=== PATIENT | female | born 1990 | race Caucasian/White ===

== ENCOUNTER 2017-11-13 08:46 | Emergency (ER) | payer SELFPAY ==
--- NOTE | 2017-11-13 10:44 | UC ---
Respiratory Complaint HPI - HPI Summary HPI Summary: works has a [employer] at [employer] sent home yesterday with cough and fever-lungs are burning when she coughs-overall feels bad - History of Current Complaint Chief Complaint: UCRespiratory Stated Complaint: RESP ISSUE Time Seen by Provider: 11/13/17 10:35 Hx Obtained From: Patient Hx Last Menstrual Period: iud ?: No Onset/Duration: Sudden Onset - 2, Lasting Days - 2, Still Present Timing: Constant Severity Initially: Moderate Severity Currently: Moderate Pain Intensity: 4 Character: Cough: Productive Aggravating Factors: Nothing Alleviating Factors: Nothing Associated Signs And Symptoms: Positive: Fever, Chills, Pleuritic Chest Pain, Wheezing, URI, Nasal Congestion - Allergies/Home Medications Allergies/Adverse Reactions: Allergies Allergy/AdvReac Type Severity Reaction Status Date / Time No Known Allergies Allergy Verified 11/13/17 08:59 Home Medications: Home Medications Escitalopram Oxalate [Lexapro 20 mg] 40 mg PO EVERY OTHER DAY 11/13/17 [History Confirmed 11/13/17] hydrOXYzine PAMOATE CAP* [Vistaril CAP*] 25 mg PO DAILY 11/13/17 [History Confirmed 11/13/17] PMH/Surg Hx/FS Hx/Imm Hx Previously Healthy: No Psychological History: Depression - Surgical History Surgical History: Yes Surgery Procedure, Year, and Place: [facility] - Family History Known Family History: Positive: None - Social History Occupation: Employed Full-time Lives: With Family Alcohol Use: None Substance Use Type: None Smoking Status (MU): Never Smoked Tobacco Review of Systems Constitutional: Fever, Chills, Fatigue Skin: Negative Eyes: Negative ENT: Sore Throat, Ear Ache, Nasal Discharge, Sinus Congestion Respiratory: Cough Cardiovascular: Negative Gastrointestinal: Negative Genitourinary: Negative Motor: Negative Neurovascular: Negative Musculoskeletal: Arthralgia Neurological: Negative Psychological: Negative Is Patient Immunocompromised?: Yes All Other Systems Reviewed And Are Negative: No Physical Exam Triage Information Reviewed: Yes Appearance: Well-Nourished, Ill-Appearing, Pain Distress Vital Signs: Initial Vital Signs Temp 97.8 F 11/13/17 09:02 Pulse 89 11/13/17 09:02 Resp 20 11/13/17 09:02 BP 122/86 11/13/17 09:02 Pulse Ox 100 11/13/17 09:02 Vital Signs Reviewed: Yes Eye Exam: Normal Eyes: Positive: Conjunctiva Clear ENT Exam: Normal ENT: Positive: Normal ENT inspection, Hearing grossly normal, Pharynx normal, Nasal congestion, Uvula midline. Negative: Nasal drainage, Tonsillar swelling, Tonsillar exudate, Trismus, Muffled voice, Hoarse voice, Dental tenderness, Sinus tenderness Dental Exam: Normal Neck exam: Normal Neck: Positive: Supple, Nontender Respiratory Exam: Normal Respiratory: Positive: Chest non-tender, No respiratory distress, No accessory muscle use, Wheezing Cardiovascular Exam: Normal Cardiovascular: Positive: RRR, No Murmur, Pulses Normal, Brisk Capillary Refill Musculoskeletal Exam: Normal Musculoskeletal: Positive: Strength Intact, ROM Intact, No Edema Neurological Exam: Normal Neurological: Positive: Alert, Muscle Tone Normal Psychological Exam: Normal Skin Exam: Normal UC Diagnostic Evaluation - Laboratory O2 Sat by Pulse Oximetry: 100 Diagnostic Studies Comment: Influenza A/B (-), Rapid Strep (-) - Radiology Xray Interpretation: No Acute Changes Radiology Interpretation Completed By: ED Physician, Radiologist Re-Evaluation - Re-Evaluation First Eval Change: Improved - Feels better after neb--increase aeration Respiratory Course/Dx - Course Course Of Treatment: Albuterol, Prednisone, zithromax, increase fluids, rest follow with pcp prn - Differential Dx/Diagnosis Provider Diagnoses: Bronchitis Discharge - Discharge Plan Condition: Stable Disposition: HOME Prescriptions: Albuterol HFA INHALER* [Ventolin HFA Inhaler*] 2 puff INH Q4H PRN #1 mdi PRN Reason: cough/wheeze Azithromycin TAB* [Zithromax TAB (Z-COY) 250 mg #6 tabs] 2 tab PO .TODAY, THEN 1 DAILY #1 coy predniSONE TAB* [Deltasone TAB*] 20 mg PO DAILY #9 tab Patient Education Materials: Guaifenesin (By mouth), Acute Bronchitis (ED) Forms: *Work Release Referrals: [facility] PHYSICIAN REFERRAL [Outside] - If Needed
[2017-11-13] MEDS ORDERED: Acetaminophen TAB* 325 MG PO ONE (10:51)
[2017-11-13] MEDS ORDERED: Albuterol/Ipratropium NEB.SOL* Albuterol 2.5 MG/Ipratropium 0.5 MG 3 ML INH ONE (10:52)
--- NOTE | 2017-11-13 11:43 | RAD ---
INDICATION: Cough wheeze and fever. COMPARISON: There are no prior studies available for comparison. TECHNIQUE: Dual-energy PA and lateral views of the chest were obtained. FINDINGS: The heart is within normal limits in size. Mediastinal and hilar contours appear within normal limits. The lungs are clear. No pleural effusion is present. IMPRESSION: NO EVIDENCE FOR ACTIVE CARDIOPULMONARY DISEASE.
== END 2017-11-13 12:35 | disposition home or self-care (01) ==
LOC: UCEAST 08:46
DX: J40 Bronchitis, not specified as acute or chronic (principal); F32.9 Major depressive disorder, single episode, unspecified
CPT/HCPCS: 71046; 87502; 87651; 99202; A9270-GY; G0463

== ENCOUNTER 2018-02-02 07:31 | Emergency (ER) | payer SELFPAY ==
[2018-02-02 07:43] VITALS: BP 151/101
--- NOTE | 2018-02-02 08:25 | UC ---
Abdominal Pain Female HPI - HPI Summary HPI Summary: PATIENT HERE COMPLAINING OF WORSENING EPIGASTRIC PAIN. PATIENT STATES SHE HAS HAD THIS PAIN INTERMITTENTLY FOR YEARS SINCE HAVING HER GALLBLADDER REMOVED BUT OVER THE PAST SEVERAL MONTHS AND HAS GOTTEN PROGRESSIVELY WORSE. YESTERDAY SHE STATES THE PAIN WAS ALMOST INTOLERABLE. PAIN RADIATES THROUGH TO HER BACK AND SHE HAS SOME ASSOCIATED VOMITING BUT NO REAL NAUSEA. SHE HAS HAD WATERY STOOLS SINCE HER GALLBLADDER REMOVAL. SHE DENIES ANY FEVER OR URINARY SYMPTOMS. - History of Current Complaint Chief Complaint: UCAbdominalPain Stated Complaint: ABD PAIN Time Seen by Provider: 02/02/18 08:11 Hx Obtained From: Patient Hx Last Menstrual Period: current Onset/Duration: Gradual Onset, Still Present Severity Initially: Moderate Severity Currently: Moderate Pain Intensity: 4 Pain Scale Used: 0-10 Numeric Location: Epigastric Radiates: Yes Radiates to: Back Character: Aching, Sharp Aggravating Factor(s): Nothing Alleviating Factor(s): Nothing Associated Signs and Symptoms: Positive: Back Pain, Vomiting, Diarrhea. Negative: Fever Allergies/Adverse Reactions: Allergies Allergy/AdvReac Type Severity Reaction Status Date / Time ibuprofen Allergy See Comment Verified 02/02/18 07:44 lithium Allergy Diarrhea Verified 02/02/18 07:43 PMH/Surg Hx/FS Hx/Imm Hx Psychological History: Depression - Surgical History Surgical History: Yes Surgery Procedure, Year, and Place: cholecystectomy - Family History Known Family History: Positive: Diabetes Family History: DEPRESSION - Social History Alcohol Use: None Substance Use Type: None Smoking Status (MU): Never Smoked Tobacco Review of Systems Constitutional: Negative Respiratory: Negative Cardiovascular: Negative Gastrointestinal: Abdominal Pain, Vomiting, Diarrhea Genitourinary: Negative All Other Systems Reviewed And Are Negative: Yes Physical Exam Triage Information Reviewed: Yes Appearance: Well-Appearing, No Pain Distress, Well-Nourished Vital Signs: Initial Vital Signs Temp 97.3 F 02/02/18 07:38 Pulse 75 02/02/18 07:38 Resp 16 02/02/18 07:38 BP 151/101 02/02/18 07:38 Pulse Ox 100 02/02/18 07:38 Vital Signs Reviewed: Yes Eyes: Positive: Conjunctiva Clear ENT: Positive: Hearing grossly normal, Pharynx normal, TMs normal Neck: Positive: Supple, Nontender, No Lymphadenopathy Respiratory Exam: Normal Cardiovascular Exam: Normal Abdomen Description: Positive: Soft, Other: - TTP DIFFUSELY BUT WORST IN EPIGASTRIC AREA. Negative: CVA Tenderness (R), CVA Tenderness (L), Distended, Guarding Bowel Sounds: Positive: Present Musculoskeletal: Positive: No Edema Neurological: Positive: Alert Psychological: Positive: Age Appropriate Behavior Skin: Negative: rashes Abd Pain Female Course/Dx - Course Course Of Treatment: TO THE [facility] BY PRIVATE CAR - Differential Dx/Diagnosis Provider Diagnoses: EPIGASTRIC ABDOMINAL PAIN Discharge - Sign-Out/Discharge Documenting (check all that apply): Discharge/Admit/Transfer - Discharge Plan Condition: Stable Disposition: HOME Patient Education Materials: Abdominal Pain (ED) Forms: *Work Release Referrals: No Primary Care Phys,NOPCP [Primary Care Provider] - Additional Instructions: GO DIRECTLY TO THE [facility] FROM HERE FOR FURTHER EVALUATION. CALL THE NUMBER BELOW FOR ASSISTANCE IN ESTABLISHING WITH A PCP An additional resource available to assist in finding the appropriate physician for your health care needs is the [facility] ([facility]). You may contact them by calling [phone]. [address] [phone] [email or web address] WALK IN HOURS THURSDAY 2P-6P THURSDAY 4P-8P - Billing Disposition and Condition Condition: STABLE Disposition: HOME
== END 2018-02-02 08:30 | disposition home or self-care (01) ==
LOC: UCEAST 07:31
DX: R10.13 Epigastric pain (principal); M54.9 Dorsalgia, unspecified; R11.0 Nausea; R19.7 Diarrhea, unspecified; F32.9 Major depressive disorder, single episode, unspecified; Z90.49 Acquired absence of other specified parts of digestive tract; Z88.6 Allergy status to analgesic agent
CPT/HCPCS: 99212; G0463

== ENCOUNTER 2018-02-02 08:56 | Emergency (ER) | payer SELFPAY ==
[2018-02-02 09:45] LABS: ABS Basophils 0.1 10^3/ul (0-0.2); ABS Eosinophils 0.3 10^3/ul (0-0.6); ABS Lymphocytes 3.6 10^3/ul (1.0-4.8); ABS Monocytes 0.8 10^3/ul (0-0.8); ABS Neutrophils 6.4 10^3/ul (1.5-7.7); ABS Nucleated RBC 0 10^3/ul; Eosinophil % 2.9 % (0-6); Hematocrit 42 % (35-47); Hemoglobin 13.6 g/dl (12.0-16.0); Lymphocyte % 32.1 % (25-47); Mean Corpuscular HGB Conc 33 g/dl (31-36); Mean Corpuscular Hemoglobin 25 pg (27-31); Mean Corpuscular Volume 75 fL (80-97); Mean Platelet Volume 7.5 um3 (7.4-10.4); Nucleated Red Blood Cells % 0.1; Platelet Count 330 10^3/ul (150-450); Red Blood Count 5.51 10^6/ul (4.0-5.4); Red Cell Distribution Width 15 % (10.5-15); White Blood Count 11.2 10^3/ul (3.5-10.8)
[2018-02-02 10:08] LABS: EGFR Non-African American 74.6 (>60)
[2018-02-02 10:26] VITALS: BP 134/89
[2018-02-02 10:34] LABS: Urine Appearance Clear; Urine Blood Negative (Negative); Urine Color Yellow; Urine Ketones Negative (Negative); Urine Protein Negative (Negative); Urine Specific Gravity 1.031 (1.010-1.030); Urine Urobilinogen Negative (Negative)
[2018-02-02] MEDS ORDERED: Lidocaine 2% VISCOUS* 15 ML UDC PO ONE (10:47)
[2018-02-02] MEDS ORDERED: Al Hydrox/Mg Hydrox/Simet LIQ* 30 ML UDC PO ONE (10:47)
--- NOTE | 2018-02-02 10:50 | ED ---
Abdominal Pain/Female - HPI Summary HPI Summary: Patient here with abdominal pain in the epigastric region and right upper quadrant that wraps around her left upper abdomen into her back. She reports these symptoms have been present since after having her gallbladder removed 3 years ago. She had right upper quadrant pain prior to that surgery but reports this pain is different she did not have the wrapping pain/pain going into back prior. She admits she's had difficulty digesting fatty foods since cholecystectomy - cannot eat peanut butter or other fats without having loose stools. She is able to tolerate dairy, bread, fruits and vegetables without GI upset. She also admits to nausea with vomiting every other day over the past 2 months. She admits her pain feels better with Tums. Denies any melena or hematochezia however she admits to fatigue. Denies use of NSAIDs as she is allergic to ibuprofen. 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 No previous issues with her liver - denies hepatitis, HIV. She does have a tattoo - reports this was placed in a sterile fashion by her fianc who owns the business. No IV drug use. No alcohol abuse. SHe does not have a PCP - has had no w/u for her sx since they started. - History of Current Complaint Hx Obtained From: Patient Hx Last Menstrual Period: current Pain Intensity: 8 <Corinne Arango - Last Filed: 02/02/18 12:08> <Ramy Giles - Last Filed: 02/03/18 08:37> - History of Current Complaint Chief Complaint: EDAbdPain Stated Complaint: ABD PAIN-CC TRANSFER Time Seen by Provider: 02/02/18 09:35 Allergies/Adverse Reactions: Allergies Allergy/AdvReac Type Severity Reaction Status Date / Time ibuprofen Allergy See Comment Verified 02/02/18 09:02 lithium Allergy Diarrhea Verified 02/02/18 09:02 Home Medications: Home Medications Escitalopram (NF) [Lexapro 20 mg (NF)] 20 mg PO DAILY 02/02/18 [History Confirmed 02/02/18] PMH/Surg Hx/FS Hx/Imm Hx Previously Healthy: Yes Endocrine/Hematology History: Denies: Hx Anticoagulant Therapy, Hx Blood Disorders, Hx Diabetes, Hx Thyroid Disease, Hx Anemia, Hx Unexplained Bleeding Respiratory History: Denies: Hx Asthma, Hx Chronic Obstructive Pulmonary Disease (COPD) GI History: Reports: Hx Gall Bladder Disease - s/p cholecystectomy, Hx Gastroesophageal Reflux Disease - untx'd Denies: Hx Cirrhosis, Hx Crohn's Disease, Hx Diverticulosis, Hx Gastrointestinal Bleed, Hx Hiatal Hernia, Hx Irritable Bowel, Hx Jaundice, Hx Ulcer Musculoskeletal History: Reports: Hx Back Problems - upper back pain from work - takes acetaminophen - Cancer History Cancer Type, Location and Year: juan miguel - Surgical History Surgery Procedure, Year, and Place: cholecystectomy Infectious Disease History: No Infectious Disease History: Denies: Traveled Outside the [place] in Last 30 Days - Family History Known Family History: Positive: Diabetes Family History: DEPRESSION - Social History Occupation: Employed Full-time - [employer] Lives: With Family Alcohol Use: None Hx Substance Use: No Substance Use Type: Reports: None Hx Tobacco Use: No Smoking Status (MU): Never Smoked Tobacco <Corinne Arango - Last Filed: 02/02/18 12:08> Review of Systems Positive: Fatigue. Negative: Fever, Chills Cardiovascular: Negative Respiratory: Negative Positive: Abdominal Pain, Vomiting, Diarrhea, Nausea Genitourinary: Negative Musculoskeletal: Negative Skin: Negative Neurological: Negative Psychological: Normal All Other Systems Reviewed And Are Negative: Yes <Corinne Arango - Last Filed: 02/02/18 12:08> Physical Exam Triage Information Reviewed: Yes Vital Signs On Initial Exam: Initial Vitals Temp Pulse Resp BP Pulse Ox 98.3 F 70 12 142/80 100 02/02/18 09:04 02/02/18 09:04 02/02/18 09:04 02/02/18 09:04 02/02/18 09:04 Vital Signs Reviewed: Yes Appearance: Positive: Well-Appearing - appears mildly tired however otherwise fine, Obese Skin: Positive: Warm, Skin Color Reflects Adequate Perfusion, Dry Head/Face: Positive: Normal Head/Face Inspection Eyes: Positive: Normal, EOMI, Conjunctiva Clear - Anicteric sclera ENT: Positive: Normal ENT inspection, Hearing grossly normal, Pharynx normal - Mucosa moist Neck: Positive: Supple, Nontender Respiratory/Lung Sounds: Positive: Clear to Auscultation, Breath Sounds Present. Negative: Rales, Rhonchi, Wheezes, Unable to speak in full sentences, Fatigue Cardiovascular: Positive: Normal, RRR, S1, S2. Negative: Murmur, Rub Abdomen Description: Positive: Soft, Other: - Epigastric region and left upper quadrant tenderness palpation - no rebounding; right upper quadrant nontender to palpation; CYRIL w/o acute blood - stool occult blood card sample sent. Negative: CVA Tenderness (R), CVA Tenderness (L), Distended, Guarding Bowel Sounds: Positive: Present, Hyperactive Pelvic Exam: Positive: Other - Deferred Musculoskeletal: Positive: Normal, Strength/ROM Intact Neurological: Positive: Normal, Sensory/Motor Intact, Alert, Oriented to Person Place, Time, CN Intact II-III Psychiatric: Positive: Normal <Corinne Arango - Last Filed: 02/02/18 12:08> Vital Signs On Initial Exam: Initial Vitals Temp Pulse Resp BP Pulse Ox 98.3 F 70 12 142/80 100 02/02/18 09:04 02/02/18 09:04 02/02/18 09:04 02/02/18 09:04 02/02/18 09:04 <Ramy Giles - Last Filed: 02/03/18 08:37> Diagnostics - Vital Signs Vital Signs Temp Pulse Resp BP Pulse Ox 02/02/18 10:06 66 134/89 99 02/02/18 10:00 64 99 02/02/18 09:36 69 139/83 100 02/02/18 09:35 67 99 02/02/18 09:04 98.3 F 70 12 142/80 100 - Laboratory Lab Results: Lab Results 02/02/18 02/02/18 02/02/18 Range/Units 09:35 09:35 09:35 WBC 11.2 H (3.5-10.8) 10^3/ul RBC 5.51 H (4.0-5.4) 10^6/ul Hgb 13.6 (12.0-16.0) g/dl Hct 42 (35-47) % MCV 75 L (80-97) fL MCH 25 L (27-31) pg MCHC 33 (31-36) g/dl RDW 15 (10.5-15) % Plt Count 330 (150-450) 10^3/ul MPV 7.5 (7.4-10.4) um3 Neut % (Auto) 57.2 (38-83) % Lymph % (Auto) 32.1 (25-47) % [place] % (Auto) 6.8 (0-7) % Eos % (Auto) 2.9 (0-6) % Baso % (Auto) 1.0 (0-2) % Absolute Neuts (auto) 6.4 (1.5-7.7) 10^3/ul Absolute Lymphs (auto) 3.6 (1.0-4.8) 10^3/ul Absolute Monos (auto) 0.8 (0-0.8) 10^3/ul Absolute Eos (auto) 0.3 (0-0.6) 10^3/ul Absolute Basos (auto) 0.1 (0-0.2) 10^3/ul Absolute Nucleated RBC 0 10^3/ul Nucleated RBC % 0.1 Sodium 138 L (139-145) mmol/L Potassium 3.8 (3.5-5.0) mmol/L Chloride 106 (101-111) mmol/L Carbon Dioxide 26 (22-32) mmol/L Anion Gap 6 (2-11) mmol/L BUN 20 (6-24) mg/dL Creatinine 0.90 (0.51-0.95) mg/dL Est GFR ( Amer) 95.9 (>60) Est GFR (Non-Af Amer) 74.6 (>60) BUN/Creatinine Ratio 22.2 H (8-20) Glucose 86 (70-100) mg/dL Lactic Acid 0.5 (0.5-2.0) mmol/L Calcium 9.3 (8.6-10.3) mg/dL Total Bilirubin 0.40 (0.2-1.0) mg/dL AST 15 (13-39) U/L ALT 18 (7-52) U/L Alkaline Phosphatase 57 (34-104) U/L C-Reactive Protein 8.59 H (< 5.00) mg/L Total Protein 7.4 (6.4-8.9) g/dL Albumin 4.3 (3.2-5.2) g/dL Globulin 3.1 (2-4) g/dL Albumin/Globulin Ratio 1.4 (1-3) Lipase 23 (11.0-82.0) U/L Beta HCG, Quant 0.64 mIU/mL Urine Color Urine Appearance Urine pH (5-9) Ur Specific [place] (1.010-1.030) Urine Protein (Negative) Urine Ketones (Negative) Urine Blood (Negative) Urine Nitrate (Negative) Urine Bilirubin (Negative) Urine Urobilinogen (Negative) Ur Leukocyte Esterase (Negative) Urine Glucose (Negative) 02/02/18 Range/Units 10:24 WBC (3.5-10.8) 10^3/ul RBC (4.0-5.4) 10^6/ul Hgb (12.0-16.0) g/dl Hct (35-47) % MCV (80-97) fL MCH (27-31) pg MCHC (31-36) g/dl RDW (10.5-15) % Plt Count (150-450) 10^3/ul MPV (7.4-10.4) um3 Neut % (Auto) (38-83) % Lymph % (Auto) (25-47) % [place] % (Auto) (0-7) % Eos % (Auto) (0-6) % Baso % (Auto) (0-2) % Absolute Neuts (auto) (1.5-7.7) 10^3/ul Absolute Lymphs (auto) (1.0-4.8) 10^3/ul Absolute Monos (auto) (0-0.8) 10^3/ul Absolute Eos (auto) (0-0.6) 10^3/ul Absolute Basos (auto) (0-0.2) 10^3/ul Absolute Nucleated RBC 10^3/ul Nucleated RBC % Sodium (139-145) mmol/L Potassium (3.5-5.0) mmol/L Chloride (101-111) mmol/L Carbon Dioxide (22-32) mmol/L Anion Gap (2-11) mmol/L BUN (6-24) mg/dL Creatinine (0.51-0.95) mg/dL Est GFR ( Amer) (>60) Est GFR (Non-Af Amer) (>60) BUN/Creatinine Ratio (8-20) Glucose (70-100) mg/dL Lactic Acid (0.5-2.0) mmol/L Calcium (8.6-10.3) mg/dL Total Bilirubin (0.2-1.0) mg/dL AST (13-39) U/L ALT (7-52) U/L Alkaline Phosphatase (34-104) U/L C-Reactive Protein (< 5.00) mg/L Total Protein (6.4-8.9) g/dL Albumin (3.2-5.2) g/dL Globulin (2-4) g/dL Albumin/Globulin Ratio (1-3) Lipase (11.0-82.0) U/L Beta HCG, Quant mIU/mL Urine Color Yellow Urine Appearance Clear Urine pH 5.0 (5-9) Ur Specific [place] 1.031 H (1.010-1.030) Urine Protein Negative (Negative) Urine Ketones Negative (Negative) Urine Blood Negative (Negative) Urine Nitrate Negative (Negative) Urine Bilirubin Negative (Negative) Urine Urobilinogen Negative (Negative) Ur Leukocyte Esterase Negative (Negative) Urine Glucose Negative (Negative) Result Diagrams: 02/02/18 09:35 02/02/18 09:35 Lab Statement: Any lab studies that have been ordered have been reviewed, and results considered in the medical decision making process. <Corinne Arango - Last Filed: 02/02/18 12:08> - Vital Signs Vital Signs Temp Pulse Resp BP Pulse Ox 02/02/18 12:06 0 F 66 16 134/89 99 02/02/18 10:06 66 134/89 99 02/02/18 10:00 64 99 02/02/18 09:36 69 139/83 100 02/02/18 09:35 67 99 02/02/18 09:04 98.3 F 70 12 142/80 100 - Laboratory Lab Results: Lab Results 02/02/18 02/02/18 02/02/18 Range/Units 09:35 09:35 09:35 WBC 11.2 H (3.5-10.8) 10^3/ul RBC 5.51 H (4.0-5.4) 10^6/ul Hgb 13.6 (12.0-16.0) g/dl Hct 42 (35-47) % MCV 75 L (80-97) fL MCH 25 L (27-31) pg MCHC 33 (31-36) g/dl RDW 15 (10.5-15) % Plt Count 330 (150-450) 10^3/ul MPV 7.5 (7.4-10.4) um3 Neut % (Auto) 57.2 (38-83) % Lymph % (Auto) 32.1 (25-47) % [place] % (Auto) 6.8 (0-7) % Eos % (Auto) 2.9 (0-6) % Baso % (Auto) 1.0 (0-2) % Absolute Neuts (auto) 6.4 (1.5-7.7) 10^3/ul Absolute Lymphs (auto) 3.6 (1.0-4.8) 10^3/ul Absolute Monos (auto) 0.8 (0-0.8) 10^3/ul Absolute Eos (auto) 0.3 (0-0.6) 10^3/ul Absolute Basos (auto) 0.1 (0-0.2) 10^3/ul Absolute Nucleated RBC 0 10^3/ul Nucleated RBC % 0.1 Sodium 138 L (139-145) mmol/L Potassium 3.8 (3.5-5.0) mmol/L Chloride 106 (101-111) mmol/L Carbon Dioxide 26 (22-32) mmol/L Anion Gap 6 (2-11) mmol/L BUN 20 (6-24) mg/dL Creatinine 0.90 (0.51-0.95) mg/dL Est GFR ( Amer) 95.9 (>60) Est GFR (Non-Af Amer) 74.6 (>60) BUN/Creatinine Ratio 22.2 H (8-20) Glucose 86 (70-100) mg/dL Lactic Acid 0.5 (0.5-2.0) mmol/L Calcium 9.3 (8.6-10.3) mg/dL Total Bilirubin 0.40 (0.2-1.0) mg/dL AST 15 (13-39) U/L ALT 18 (7-52) U/L Alkaline Phosphatase 57 (34-104) U/L C-Reactive Protein 8.59 H (< 5.00) mg/L Total Protein 7.4 (6.4-8.9) g/dL Albumin 4.3 (3.2-5.2) g/dL Globulin 3.1 (2-4) g/dL Albumin/Globulin Ratio 1.4 (1-3) Lipase 23 (11.0-82.0) U/L Vitamin B12 474 (180-914) pg/mL TSH 3.76 (0.34-5.60) mcIU/mL Beta HCG, Quant 0.64 mIU/mL Urine Color Urine Appearance Urine pH (5-9) Ur Specific [place] (1.010-1.030) Urine Protein (Negative) Urine Ketones (Negative) Urine Blood (Negative) Urine Nitrate (Negative) Urine Bilirubin (Negative) Urine Urobilinogen (Negative) Ur Leukocyte Esterase (Negative) Urine Glucose (Negative) 02/02/18 Range/Units 10:24 WBC (3.5-10.8) 10^3/ul RBC (4.0-5.4) 10^6/ul Hgb (12.0-16.0) g/dl Hct (35-47) % MCV (80-97) fL MCH (27-31) pg MCHC (31-36) g/dl RDW (10.5-15) % Plt Count (150-450) 10^3/ul MPV (7.4-10.4) um3 Neut % (Auto) (38-83) % Lymph % (Auto) (25-47) % [place] % (Auto) (0-7) % Eos % (Auto) (0-6) % Baso % (Auto) (0-2) % Absolute Neuts (auto) (1.5-7.7) 10^3/ul Absolute Lymphs (auto) (1.0-4.8) 10^3/ul Absolute Monos (auto) (0-0.8) 10^3/ul Absolute Eos (auto) (0-0.6) 10^3/ul Absolute Basos (auto) (0-0.2) 10^3/ul Absolute Nucleated RBC 10^3/ul Nucleated RBC % Sodium (139-145) mmol/L Potassium (3.5-5.0) mmol/L Chloride (101-111) mmol/L Carbon Dioxide (22-32) mmol/L Anion Gap (2-11) mmol/L BUN (6-24) mg/dL Creatinine (0.51-0.95) mg/dL Est GFR ( Amer) (>60) Est GFR (Non-Af Amer) (>60) BUN/Creatinine Ratio (8-20) Glucose (70-100) mg/dL Lactic Acid (0.5-2.0) mmol/L Calcium (8.6-10.3) mg/dL Total Bilirubin (0.2-1.0) mg/dL AST (13-39) U/L ALT (7-52) U/L Alkaline Phosphatase (34-104) U/L C-Reactive Protein (< 5.00) mg/L Total Protein (6.4-8.9) g/dL Albumin (3.2-5.2) g/dL Globulin (2-4) g/dL Albumin/Globulin Ratio (1-3) Lipase (11.0-82.0) U/L Vitamin B12 (180-914) pg/mL TSH (0.34-5.60) mcIU/mL Beta HCG, Quant mIU/mL Urine Color Yellow Urine Appearance Clear Urine pH 5.0 (5-9) Ur Specific [place] 1.031 H (1.010-1.030) Urine Protein Negative (Negative) Urine Ketones Negative (Negative) Urine Blood Negative (Negative) Urine Nitrate Negative (Negative) Urine Bilirubin Negative (Negative) Urine Urobilinogen Negative (Negative) Ur Leukocyte Esterase Negative (Negative) Urine Glucose Negative (Negative) Result Diagrams: 02/02/18 09:35 02/02/18 09:35 Lab Statement: Any lab studies that have been ordered have been reviewed, and results considered in the medical decision making process. <Ramy Giles - Last Filed: 02/03/18 08:37> Re-Evaluation - Re-Evaluation First Eval Change: Improved - nausea resolved - ab pain improved - would like pepcid before leaving <Corinne Arango - Last Filed: 02/02/18 12:08> Abdominal Pain Fem Course/Dx <Corinne Arango - Last Filed: 02/02/18 12:08> <Ramy Giles - Last Filed: 02/03/18 08:37> - Diagnoses Provider Diagnoses: Epigastric abdominal pain Discharge - Billing Disposition and Condition Condition: STABLE Disposition: HOME <Corinne Arango - Last Filed: 02/02/18 12:08> - Sign-Out/Discharge Documenting (check all that apply): Discharge/Admit/Transfer - Billing Disposition and Condition Condition: STABLE Disposition: HOME <Ramy Giles - Last Filed: 02/03/18 08:37> - Discharge Plan Condition: Stable Disposition: HOME Prescriptions: Famotidine TAB* [Pepcid 20 MG TAB*] 40 mg PO BID #28 tab Patient Education Materials: Gastroesophageal Reflux Disease in Children (ED), Diet for Stomach Ulcers and Gastritis (ED) Forms: *Work Release Referrals: No Primary Care Phys,NOPCP [Primary Care Provider] - Additional Instructions: You appear to have gastroesophageal reflux and possibly gastritis from increased acid and irritation in her stomach. He will be started on a trial of famotidine also known as Pepcid. This medication is dissent to the [facility] pharmacy. Please take this over the next 2 weeks and follow the diet included here to reduce her pain symptoms. Is also important he follow-up with the [facility] in the next 2 weeks. Call today to schedule an appointment. [facility] *If you develop worsening of abdominal pain, vomiting, vomiting blood, bloody diarrhea, black stool, fever, sweats, fatigue, dizziness, chest pain, shortness of breath, return to the emergency department.
[2018-02-02] MEDS ORDERED: Famotidine TAB* 20 MG PO ONE (11:37)
== END 2018-02-02 12:06 | disposition home or self-care (01) ==
LOC: ED 08:56
DX: R10.13 Epigastric pain (principal); R10.11 Right upper quadrant pain; Z87.19 Personal history of other diseases of the digestive system; R11.2 Nausea with vomiting, unspecified; R19.7 Diarrhea, unspecified
CPT/HCPCS: 36415; 80053; 81003; 82272; 82607; 83605; 83690; 84443; 84702; 85025; 86140; 99282; A9270-GY